=== PATIENT | female | born 2005 | race Hispanic/Latino ===

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

== ENCOUNTER → 2025-02-06 | Emergency (ER) | payer SELFPAY ==
[~2025-02-06] VITALS: Ht 157.5 cm; Wt 49.0 kg
[~2025-02-06] MED LIST: IBUP-1493 PO; IOHEXOL-350 75 ML VIAL IV ONE; KETO10TA2 PO; ONDA-104 PO
--- NOTE | 2025-02-06 07:29 | ERN ---
General Chief Complaint: Abdominal Pain Stated Complaint: RIGHT SIDED ABDOMINAL PAIN Time Seen by MD: 07:19 Time Seen by Midlevel: 07:19 Source: patient History of Present Illness Initial Comments The patient is a 19-year-old female presenting to the emergency department with right lower quadrant abdominal pain that started two days ago and has progressively worsened. She specifically denies any fever, chills, or any other symptoms at this time. Denies being . She does report having a history of a right ovarian cyst that was removed in October of 2023. Allergies: Coded Allergies: No Known Drug Allergies (Unverified Allergy, Unknown, 10/02/23) Home Meds Active Scripts Ibuprofen (Motrin/Advil) 800 Mg Tab, 800 MG PO TID, #30 TAB Prov:JULY ALCAZAR MD 10/02/23 Ondansetron HCl (Ondansetron HCl) 4 Mg Tablet, 4 MG PO TIDP PRN for VOMITING, #20 TAB Prov:JULY ALCAZAR MD 10/02/23 Past Medical History Past Medical History: No Pertinent History Past Surgical History: Other, None Surgical History Other: LT OVARIAN CYST Female( History) LMP: Jan 27, 2025 ROS Dictation CONSTITUTIONAL: Negative except for HPI HEAD/FACE: Negative except for HPI EENT: Negative except for HPI RESPIRATORY: Negative except for HPI GASTROINTESTINAL/ABDOMINAL: Negative except for HPI GENITOURINARY: Negative except for HPI MUSCULOSKELETAL: Negative except for HPI INTEGUMENTARY: Negative except for HPI NEUROLOGICAL/PSYCH: Negative except for HPI HEMATOLOGIC/LYMPHATIC: Negative except for HPI All Systems Negative, Except as noted above. 13 point review of systems assessed and all negative except for above. Physical Exam Physical Exam Dictation Vital Signs reviewed General Appearance: Alert, oriented x 3, no acute distress, well developed, nourished. Head and Face: non-traumatic. Eyes: PERRL, pink conjunctivas, eyelid no trauma, anterior chamber with arcus senilis. Ears: Pinnas intact and no signs of trauma or erythema ear canals clear and no discharge TM no erythema Nose: No discharge, no bleeding. Oropharynx: Mouth normal, tongue pink, pharynx clear,no erythema, tonsils no exudates, no abscesses noted, mucous membrane moist Neck: Supple, non-tender, no thyromegaly, no masses, no JVD, no bruits Breast:Deferred Chest:No tenderness, no crepitus, no paradoxical movement, no retractions Lungs:Clear, well-ventilated, symmetric, no rales, no wheezing, no rhonchi, no stridor, good breath sounds bilaterally Heart: Tachycardia, regular rhythm, no murmur, no gallops Vascular: no peripheral edema, Abdomen: Soft, positive bowel sounds, nondistended, no guarding, Suprapubic/right lower quadrant abdominal tenderness, no rebound, no masses no hepatomegaly, no splenomegaly, no Bell's sign, no hernias. Rectal: Deferred Genital: Deferred Neurological: Normal speech, motor function intact, sensory function intact Musculoskeletal: Neck nontender, full range of motion, back nontender, full range of motion, Extremities: nontender, full range of motion Skin: Color pink, dry, no turgor, no rash, no lacerations, no abrasions, no contusions. Lymphatic: Deferred Results Laboratory and Microbiology Lab and Micro Result Laboratory Tests Test 02/06/25 07:24 02/06/25 07:31 Urine Color LIGHT-ORANGE (YELLOW) Urine Appearance TURBID (CLEAR) Urine pH 7.5 (5.0-8.0) Urine Specific [place] 1.024 (1.001-1.031) Urine Protein 50 mg/dL (NEGATIVE) H Urine Glucose (UA) NEGATIVE mg/dL (NEGATIVE) Urine Ketones 5 mg/dL (NEGATIVE) H Urine Occult Blood NEGATIVE (NEGATIVE) Urine Nitrate NEGATIVE (NEGATIVE) Urine Bilirubin NEGATIVE mg/dL (NEGATIVE) Urine Urobilinogen 0.2 mg/dL (0.2-1.0) Urine Leukocyte Esterase NEGATIVE [place]/uL Urine RBC None /HPF (0-1) Urine WBC None /HPF (0-1) Urine Squamous Epithelial Cells MOD /HPF (0-2) Urine Amorphous Crystals (Auto) MOD /LPF (None Seen) Urine Bacteria FEW /HPF (None Seen) White Blood Count 12.2 K/uL (4.8-10.8) H Red Blood Count 4.56 MIL/uL (4.00-5.50) Hemoglobin 14.2 g/dL (12.0-16.0) Hematocrit 41.4 % (36-48) Mean Corpuscular Volume 90.8 fL (80-100) Mean Corpuscular Hemoglobin 31.1 pg (27.0-33.0) Mean Corpuscular Hemoglobin Concent 34.3 g/dL (32.0-36.0) Red Cell Distribution Width 12.0 % (11.0-15.5) Platelet Count 290 K/uL (130-400) Mean Platelet Volume 11.8 fL (7.5-10.5) H Immature Granulocyte % (Auto) 0.3 % (0-1) Neutrophils (%) (Auto) 81.3 % (40.0-77.0) H Lymphocytes (%) (Auto) 14.4 % (21.0-51.0) L Monocytes (%) (Auto) 3.4 % (3.0-13.0) Eosinophils (%) (Auto) 0.3 % (0.0-8.0) Basophils (%) (Auto) 0.3 % (0.0-5.0) Neutrophils # (Auto) 9.9 K/uL (1.8-7.7) H Lymphocytes # (Auto) 1.8 K/uL (1.0-4.8) Monocytes # (Auto) 0.4 K/uL (0.1-1.0) Eosinophils # (Auto) 0.04 K/uL (0.00-0.70) Basophils # (Auto) 0.04 K/uL (0.00-0.20) Absolute Immature Granulocyte (auto 0.04 K/uL (0-1) Nucleated Red Blood Cells 0.0 % (0.0-0.19) Sodium Level 143 mmol/L (136-145) Potassium Level 3.4 mmol/L (3.5-5.1) L Chloride Level 104 mmol/L (101-111) Carbon Dioxide Level 26 mmol/L (21-32) Blood Urea Nitrogen 10 mg/dL (7-18) Creatinine 0.8 mg/dL (0.5-1.0) Glomerular Filtration Rate Calc 109 mL/min (>90) Random Glucose 116 mg/dL (70-105) H Total Calcium 9.7 mg/dL (8.5-10.1) Serum Test, Qualitative NEGATIVE (NEGATIVE) Labs Reviewed?: Yes MDM MDM: 19-year-old female presents to the ER with severe suprapubic/right lower quadrant abdominal tenderness that started two days ago and progressively worsened. She does report having a history of a large ovarian cyst that was removed last year in October of 2023. She is followed by OBGYN Dr. Anne. On physical examination the patient appears to be in severe distress secondary to abdominal pain. She has right lower quadrant/suprapubic abdominal tenderness. CT scan was obtained to rule out appendicitis however CT reveals a large unilocular ovarian cyst in the midline likely ovarian in origin. Pelvic ultrasound reveals no evidence of ovarian torsion. We attempted to contact Dr. Richard Anne but we were unsuccessful. The patient was given Toradol, morphine, and Dilaudid and her pain has been controlled. Given that there was no ovarian torsion the patient may follow up outpatient. She will be following up with OBGYN within the next 24-48 hours. Strict return precautions were given. A copy of the CT scan and ultrasound report was provided to the patient. Differential diagnosis: Appendicitis, ovarian torsion, pyelonephritis, urinary tract infection There are no social concerns with this patient. Prescription drug management Prescriptions will include: Toradol Medical management and examination interpretation discussions were had by me with other qualified healthcare professionals as indicated for the patient's care. ED Course Orders Procedure Category Date Status Time Cbc With Differential LAB 02/06/25 Complete 07:24 Basic Metabolic Panel LAB 02/06/25 Complete 07:24 Testing, LAB 02/06/25 Complete Serum Hcg 07:24 Urinalysis Profile LAB 02/06/25 Complete 07:24 Ct Abdomen/Pelvis CT 02/06/25 Resulted W/Contrast 07:24 Us Pelvic Non-Ob US 02/06/25 Resulted Limited 07:24 0.9%Nacl 1000ml (Ns PHA 02/06/25 Complete 1000ml) 07:30 Ondansetron 4mg Inj PHA 02/06/25 Complete (Zofran 4mg Inj) 07:30 Morphine 2mg Syg PHA 02/06/25 Complete (Morphine 2mg Syg) 07:30 Iohexol (Omnipaque) PHA 02/06/25 Complete 09:04 Ketorolac PHA 02/06/25 Complete Tromethamine 15mg/Ml 09:30 Hydromorphone 1 Mg PHA 02/06/25 Complete Inj (Dilaudid 1mg Inj 10:30 Current Medications Medications (Trade) Dose Ordered Sig/Mauricio Route PRN Reason Start Time Stop Time Status Last Admin Dose Admin Hydromorphone HCl (DiLAUDid 1MG INJ) 1 mg ONCE ONCE IVP 02/06/25 10:30 02/06/25 10:31 DC 02/06/25 10:45 Iohexol (Omnipaque) 75 ml STK-MED ONCE IV 02/06/25 09:04 02/06/25 09:04 DC Ketorolac Tromethamine (toRADol) 15 mg ONCE ONCE IV 02/06/25 09:30 02/06/25 09:31 DC 02/06/25 09:34 Morphine Sulfate (morPHINE 2MG SYG) 2 mg ONCE ONCE IVP 02/06/25 07:30 02/06/25 07:31 DC 02/06/25 07:38 Ondansetron HCl (zoFRAN 4MG INJ) 4 mg ONCE ONCE IVP 02/06/25 07:30 02/06/25 07:31 DC 02/06/25 07:38 Sodium Chloride 1,000 ml @ 0 mls/hr ONCE ONCE IV 02/06/25 07:30 02/06/25 07:31 DC 02/06/25 07:38 Vital Signs Date Time Temp Pulse Resp B/P (MAP) Pulse Ox O2 Delivery O2 Flow Rate FiO2 02/06/25 09:53 97.9 68 20 127/82 100 Room Air* 0 21 02/06/25 07:33 98.4 103 22 138/85 100 Room Air* 0 21 02/06/25 07:07 98.1 88 20 142/84 99 Room Air 0 [place] [address] [id number] IMAGING REPORT Signed PATIENT: CHANDLER RUST MR#: [id number] : 2005 SEX: F AGE: 19 LOCATION: [facility] ORDER 6 STATUS: [facility] REPORT#: [id number] SERVICE 3 REASON: RLQ abd pain r/o torsion ORDERING PHYSICIAN: KRYSTEN CISSE PROCEDURE: PELVLTD - US PELVIC NON-OB LIMITED EXAM: US Pelvis, Complete. CLINICAL HISTORY: RLQ abd pain r/o torsion TECHNIQUE: Transvaginal and transabdominal pelvic ultrasound (complete) with image documentation. COMPARISON: CT images from earlier today. FINDINGS: ENDOMETRIUM: Normal thickness. UTERUS/CERVIX: The uterus appears within normal limits. No uterine fibroid or other mass evident. RIGHT OVARY: There appears to be normal Doppler flow on transabdominal images. No abnormal mass. LEFT OVARY: There appears to be normal Doppler flow on transabdominal images. Incidental 1.8 x 1.4 x 1.7 cm left ovarian follicular cyst. There is a 10.6 x 5.1 x 9.0 cm left ovarian or paraovarian cyst. This would be better characterized with contrast-enhanced MR imaging of the pelvis. FREE FLUID: No free fluid. IMPRESSION: 1. No acute findings. 2. 10.6 x 5.1 x 9.0 cm left ovarian or paraovarian cyst, recommend contrast-enhanced pelvic MRI for further characterization. Normal left ovarian arterial waveforms are documented. /[place] DICTATED BY: GINNA PAULINO Jr., MD DATE: 02/06/251044 ELECTRONICALLY SIGNED BY: GINNA PAULINO Jr., MD DATE: 02/06/251044 [place] [address] IMAGING REPORT Signed PATIENT: CHANDLER RUST MR#: [id number] : 2005 SEX: F AGE: 19 LOCATION: [facility] ORDER 6 STATUS: REG REPORT#: [id number] SERVICE 0724 REASON: RLQ abd pain r/o appendicitis ORDERING PHYSICIAN: KRYSTEN CISSE PROCEDURE: ABD PEL W - CT ABDOMEN/PELVIS W/CONTRAST EXAM: CT Abdomen and Pelvis with IV contrast CLINICAL HISTORY: Right lower quadrant abdominal pain. Rule out appendicitis. TECHNIQUE: Thin collimated axial CT images of the abdomen and pelvis were obtained with sagittal and coronal reformatted images also submitted. CT scan is done according to ALARA (As Low As Reasonably Achievable). CONTRAST: Omnipaque 350, 74 cc. COMPARISON: None. FINDINGS: Unremarkable visualized lung parenchyma. No focal abnormality within the liver, gallbladder, pancreas, spleen, adrenals, or kidneys. There is no obvious bowel wall thickening. Bowel loops are normal in caliber without evidence of obstruction or ileus. The appendix is normal. There is no abnormality within the urinary bladder. A 10.8 x 9.6 x 6.2 cm large unilocular ovarian cyst in the midline, likely ovarian in origin. The left ovary appears unremarkable with a small follicle cyst. The uterus appears unremarkable. Abdominal and pelvic vessels are patent. No lymphadenopathy. No free fluid. There is no acute osseous abnormality. IMPRESSIONS: No acute appendicitis. A large unilocular ovarian cyst in the midline, likely ovarian in origin, with the possibility of ovarian serous cystadenoma. Recommend contrast-enhanced MR imaging of the pelvis for further evaluation. /[place] DICTATED BY: GINNA PAULINO Jr., MD DATE: 02/06/25 105 ELECTRONICALLY SIGNED BY: GINNA PAULINO Jr., MD DATE: 02/06/25 1053 DX & DISP Disposition: Discharge Departure Impression: Primary Impression: Ovarian cyst Condition: Stable Scripts Ketorolac Tromethamine (Ketorolac Tromethamine) 10 Mg Tablet 1 TAB PO TID for pain for 5 Days, #15 TAB 0 Refills Prov: KRYSTEN CISSE 02/06/25 Additional Instructions: We attempted to contact your OBGYN Dr. Anne but were unsuccessful. Your CT scan and pelvic ultrasound reveal a large ovarian cyst in the midline which appears to be ovarian in origin. You will need to follow up with your OBGYN outpatient within the next 24-48 hours for further evaluation. If your symptoms worsen please return to the ER for further evaluation. Referrals: JC AYALA MD (PCP) ALEJANDRA ANNE MD Time of Disposition: 11:43 I have reviewed the case, and I agree with, Diagnosis and Plan I performed the substantive portion of the visit. I have reviewed and personally made and approve the management plan that is documented in the note by myself or the FILIPPO. I acknowledge for responsibility for the patient's management plan. KRYSTEN CISSE Feb 06, 2025 07:29
[2025-02-06] MEDS: morPHINE 2 MG SYG IVP ONE (07:38)
[2025-02-06] MEDS: 0.9%NACL 1000ML 1,000 ML IV ONE (07:38)
[2025-02-06] MEDS: ondanSETRON 4MG INJ IVP ONE (07:38)
[2025-02-06 07:40] LABS: BASOPHILS # (AUTO) 0.04 K/uL (0.00-0.20); BASOPHILS % (AUTO) 0.3 % (0.0-5.0); EOSINOPHILS # (AUTO) 0.04 K/uL (0.00-0.70); EOSINOPHILS % (AUTO) 0.3 % (0.0-8.0); HEMATOCRIT 41.4 % (36-48); IMMATURE GRANULOCYTE ABSOLUTE 0.04 K/uL (0-1); LYMPHOCYTES # (AUTO) 1.8 K/uL (1.0-4.8); LYMPHOCYTES % (AUTO) 14.4 % (21.0-51.0); MEAN CORPUSCULAR HEMOGLOBIN 31.1 pg (27.0-33.0); MEAN CORPUSCULAR HGB CONC 34.3 g/dL (32.0-36.0); MEAN CORPUSCULAR VOLUME 90.8 fL (80-100); MONOCYTES # (AUTO) 0.4 K/uL (0.1-1.0); MONOCYTES % (AUTO) 3.4 % (3.0-13.0); NEUTROPHILS # (AUTO) 9.9 K/uL (1.8-7.7); NEUTROPHILS % (AUTO) 81.3 % (40.0-77.0); PLATELET COUNT (AUTO) 290 K/uL (130-400); RED BLOOD CELL COUNT(AUTO) 4.56 MIL/uL (4.00-5.50); WHITE BLOOD COUNT (AUTO) 12.2 K/uL (4.8-10.8)
[2025-02-06 07:44] LABS: APPEARANCE,URINE TURBID (CLEAR); BILIRUBIN,URINE NEGATIVE (NEGATIVE); COLOR,URINE LIGHT-ORANGE (YELLOW); GLUCOSE, URINE (UA) NEGATIVE (NEGATIVE); KETONES,URINE 5 mg/dL (NEGATIVE); LEUKOCYTE ESTERASE ,URINE NEGATIVE Leu/uL (NEGATIVE); NITRATE,URINE NEGATIVE (NEGATIVE); OCCULT BLOOD,URINE NEGATIVE (NEGATIVE); PH,URINE 7.5 (5.0-8.0); PROTEIN,URINE 50 mg/dL (NEGATIVE); UROBILINOGEN,URINE 0.2 mg/dL (0.2-1.0)
[2025-02-06 07:47] LABS: ADD UA MICROSCOPIC YES
[2025-02-06 07:51] LABS: CREATININE 0.8 mg/dL (0.5-1.0); POTASSIUM 3.4 mmol/L (3.5-5.1)
[2025-02-06 08:06] LABS: BACTERIA,URINE FEW /HPF (None Seen); MUCUS,URINE MANY LPF (None Seen); SQUAMOUS EPITHELIAL CELL,UR MOD /HPF (0-2)
[2025-02-06] MEDS: ketOROlac 15MG/ML VIAL (15MG/ML) IV ONE (09:34)
--- NOTE | 2025-02-06 09:46 | HMCIMG ---
EXAM: US Pelvis, Complete. CLINICAL HISTORY: RLQ abd pain r/o torsion TECHNIQUE: Transvaginal and transabdominal pelvic ultrasound (complete) with image documentation. COMPARISON: CT images from earlier today. FINDINGS: ENDOMETRIUM: Normal thickness. UTERUS/CERVIX: The uterus appears within normal limits. No uterine fibroid or other mass evident. RIGHT OVARY: There appears to be normal Doppler flow on transabdominal images. No abnormal mass. LEFT OVARY: There appears to be normal Doppler flow on transabdominal images. Incidental 1.8 x 1.4 x 1.7 cm left ovarian follicular cyst. There is a 10.6 x 5.1 x 9.0 cm left ovarian or paraovarian cyst. This would be better characterized with contrast-enhanced MR imaging of the pelvis. FREE FLUID: No free fluid. IMPRESSION: 1. No acute findings. 2. 10.6 x 5.1 x 9.0 cm left ovarian or paraovarian cyst, recommend contrast-enhanced pelvic MRI for further characterization. Normal left ovarian arterial waveforms are documented. /[place]
--- NOTE | 2025-02-06 09:53 | HMCIMG ---
EXAM: CT Abdomen and Pelvis with IV contrast CLINICAL HISTORY: Right lower quadrant abdominal pain. Rule out appendicitis. TECHNIQUE: Thin collimated axial CT images of the abdomen and pelvis were obtained with sagittal and coronal reformatted images also submitted. CT scan is done according to ALARA (As Low As Reasonably Achievable). CONTRAST: Omnipaque 350, 74 cc. COMPARISON: None. FINDINGS: Unremarkable visualized lung parenchyma. No focal abnormality within the liver, gallbladder, pancreas, spleen, adrenals, or kidneys. There is no obvious bowel wall thickening. Bowel loops are normal in caliber without evidence of obstruction or ileus. The appendix is normal. There is no abnormality within the urinary bladder. A 10.8 x 9.6 x 6.2 cm large unilocular ovarian cyst in the midline, likely ovarian in origin. The left ovary appears unremarkable with a small follicle cyst. The uterus appears unremarkable. Abdominal and pelvic vessels are patent. No lymphadenopathy. No free fluid. There is no acute osseous abnormality. IMPRESSIONS: No acute appendicitis. A large unilocular ovarian cyst in the midline, likely ovarian in origin, with the possibility of ovarian serous cystadenoma. Recommend contrast-enhanced MR imaging of the pelvis for further evaluation. /[place]
[2025-02-06] MEDS: hydroMORPHone 1 MG INJ IVP ONE (10:45)
[2025-02-06 11:49] VITALS: BP 112/72; PULSE 67; RESP 16; TEMP 97.7; O2SAT 97
== END ==
LOC: EDH 06:58
DX: N83.202 Unspecified ovarian cyst, left side (principal); Z79.1 Long term (current) use of non-steroidal anti-inflammatories (NSAID)
CPT/HCPCS: 99285; 74177; 96374; 96375; 76857; 96361; 80048; 84703; 85025; 81001; 36415; J1885; J1171; J2270; J7030; J2405; Q9967